=== PATIENT | female | born 1975 | race Caucasian/White ===

== ENCOUNTER 2017-07-22 20:58 | Emergency (ER) | payer SELFPAY ==
[~2017-07-22] VITALS: Ht 167.6 cm; Wt 59.0 kg
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
[2017-07-22] MEDS ORDERED: TDAP [DIPH/PERTUSSIS/TET] 0.5 ML VIAL IM ONE ×2 (21:56→22:00)
[2017-07-22] MEDS ORDERED: SILVER SULFADIAZINE CREAM 25 GM TUBE ONE (21:56)
[2017-07-22] MEDS ORDERED: SILVER SULFADIAZINE CREAM 25 GM TUBE TP ONE (22:00)
[2017-07-22 22:13] VITALS: BP 118/82
--- NOTE | 2017-07-22 22:14 | NUR ---
Patient discharged to home in stable condition. Written and verbal after care instructions given. Patient verbalizes understanding of instruction. pt ambulatory with a steady gait
== END 2017-07-22 22:34 | disposition home or self-care (01) ==
LOC: ER 21:00
DX: T22.211A Burn of second degree of right forearm, initial encounter (principal); X19.XXXA Contact with other heat and hot substances, initial encounter; Y93.89 Activity, other specified; Y92.89 Other specified places as the place of occurrence of the external cause; Y99.8 Other external cause status
CPT/HCPCS: 16020; 90471; 90715; 99284; A4606; Z7610